=== PATIENT | female | born 1965 | race Caucasian/White ===

== ENCOUNTER 2025-03-19 20:55 | Emergency (ER) | payer OTHER ==
[~2025-03-19] VITALS: Wt 111.6 kg
[2025-03-19] MEDS ORDERED: Acetaminophen/Oxycodone 5 MG/325 MG TABLET PO ONE ×2 (21:15→23:55)
[2025-03-19] MEDS ORDERED: MELOXICAM15 MG PO (23:56)
== END 2025-03-20 00:13 | disposition home or self-care (01) ==
LOC: ED 20:55
DX: S20.212A Contusion of left front wall of thorax, initial encounter (principal); M54.2 Cervicalgia; M25.552 Pain in left hip; M25.532 Pain in left wrist; M79.662 Pain in left lower leg; Z88.1 Allergy status to other antibiotic agents; V68.9XXA Unspecified occupant of heavy transport vehicle injured in noncollision transport accident in traffic accident, initial encounter; Y93.89 Activity, other specified; Y92.410 Unspecified street and highway as the place of occurrence of the external cause; Y99.8 Other external cause status